=== PATIENT | male | born 1970 | race African-American/Black ===

== ENCOUNTER 2024-06-01 12:12 | Emergency (ER) | payer OTHER ==
[~2024-06-01] VITALS: Ht 180.3 cm; Wt 90.7 kg
[2024-06-01] MEDS ORDERED: APIX5TAB4 PO (14:12)
[2024-06-01 15:13] VITALS: BP 167/101; TEMP 97.9; O2SAT 97
== END 2024-06-01 15:14 | disposition home or self-care (01) ==
LOC: ER 12:12
DX: I82.442 Acute embolism and thrombosis of left tibial vein (principal); M79.605 Pain in left leg; Z88.0 Allergy status to penicillin
CPT/HCPCS: 93971-TC